=== PATIENT | female | born 1940 | race Two or more races ===

== ENCOUNTER 2018-07-21 15:38 | Emergency (ER) | payer MEDICARE, MEDICAID ==
[~2018-07-21] VITALS: Ht 142.2 cm; Wt 56.7 kg
[2018-07-21] MEDS ORDERED: ONDANSETRON 4 MG/2 ML VIAL IM ONE (16:00)
[2018-07-21] MEDS ORDERED: MORPHINE SULFATE 4 MG/1 ML DISP.SYRIN IM ONE (16:00)
[2018-07-21] MEDS ORDERED: MORPHINE SULFATE 4 MG/1 ML DISP.SYRIN ONE (16:04)
[2018-07-21] MEDS ORDERED: ONDANSETRON 4 MG/2 ML VIAL ONE (16:04)
--- NOTE | 2018-07-21 16:18 | NUR ---
PT WAS D/C'd TO HOME. D/C INSTRUCTIONS GIVEN TO THE PT.
[2018-07-21 16:19] VITALS: BP 136/82
== END 2018-07-21 16:20 | disposition home or self-care (01) ==
LOC: ER 15:39
DX: G89.29 Other chronic pain (principal); M54.42 Lumbago with sciatica, left side; E11.9 Type 2 diabetes mellitus without complications
CPT/HCPCS: 96372 ×2; 99283; J2270; J2405; A4663

== ENCOUNTER 2018-07-25 15:36 | Emergency (ER) | payer MEDICARE, MEDICAID ==
[~2018-07-25] VITALS: Ht 142.2 cm; Wt 56.7 kg
--- NOTE | 2018-07-25 15:49 | NUR ---
DR Tillman at the bedside for MSE.
[2018-07-25] MEDS ORDERED: MORPHINE SULFATE 4 MG/1 ML DISP.SYRIN ONE (16:00)
[2018-07-25] MEDS ORDERED: MORPHINE SULFATE 4 MG/1 ML DISP.SYRIN IM ONE (16:00)
[2018-07-25] MEDS ORDERED: MORPHINE SULFATE 2 MG/1 ML DISP.SYRIN ONE (16:01)
[2018-07-25 16:18] VITALS: BP 125/88
--- NOTE | 2018-07-25 16:19 | NUR ---
Patient discharged to home in stable conditon. Written and verbal after care instructions given. Patient verbalizes understanding of instructions.
== END 2018-07-25 16:19 | disposition home or self-care (01) ==
LOC: ER 15:38
DX: M54.42 Lumbago with sciatica, left side (principal); G89.29 Other chronic pain; E11.9 Type 2 diabetes mellitus without complications
CPT/HCPCS: 96372; 99283; J2270 ×2; A4663

== ENCOUNTER 2018-08-26 03:32 | Emergency (ER) | payer MEDICARE, MEDICAID ==
[~2018-08-26] VITALS: Ht 142.2 cm; Wt 56.7 kg
--- NOTE | 2018-08-26 03:50 | NUR ---
Patient ambulated with stable gait. Speech clear, speaks in complete sentences. No neuro deficits noted. A/Ox4. Patient came for c/o left lower back pain that radiates down to left lower extremity. Pain 10/. Patient stated she has been following up at pain management clinic and has been getting epidurals for pain relief but has not been effective. Respiratory even and unlabored, no cough no sob. No cardiovascular distress noted. No GI/ distress.
[2018-08-26] MEDS ORDERED: HYDROMORPHONE HCL 2 MG TABLET ONE ×2 (04:07→05:14)
[2018-08-26] MEDS ORDERED: HYDROMORPHONE HCL 2 MG TABLET PO ONE ×2 (04:15→06:00)
--- NOTE | 2018-08-26 04:15 | NUR ---
Patient transferred to CT in stable condition.
--- NOTE | 2018-08-26 04:25 | NUR ---
Patient back in room from CT
--- NOTE | 2018-08-26 04:35 | NUR ---
Patient in bed resting, NAD
--- NOTE | 2018-08-26 05:00 | NUR ---
PATIENT UNABLE TO RECALL HOMEDICATION NAMES AND DOSAGES AT THIS TIME.
[2018-08-26] MEDS ORDERED: ONDANSETRON 4 MG/2 ML VIAL IM ONE (06:45)
[2018-08-26] MEDS ORDERED: HYDROMORPHONE 1 MG/1 ML DISP.SYRIN IM ONE (06:45)
[2018-08-26] MEDS ORDERED: TARCEVA PO (06:49)
[2018-08-26] MEDS ORDERED: NOVOLOG SUBCUT (06:49)
[2018-08-26] MEDS ORDERED: HYDROMORPHONE 2 MG/1 ML DISP.SYRIN ONE (06:51)
[2018-08-26] MEDS ORDERED: ONDANSETRON 4 MG/2 ML VIAL ONE (06:51)
--- NOTE | 2018-08-26 07:33 | NUR ---
Pt states feeling better and wishes to be discharged.
[2018-08-26 07:38] VITALS: BP 134/60
--- NOTE | 2018-08-26 07:38 | NUR ---
Patient discharged to home in stable conditon. Written and verbal after care instructions given. Patient verbalizes understanding of instructions.
== END 2018-08-26 07:41 | disposition home or self-care (01) ==
LOC: ER 03:34
DX: M54.42 Lumbago with sciatica, left side (principal); E11.9 Type 2 diabetes mellitus without complications; Z79.899 Other long term (current) drug therapy; Z79.84 Long term (current) use of oral hypoglycemic drugs
CPT/HCPCS: 72131; 96372 ×2; 99284; J1170; J2405; A4663

== ENCOUNTER 2019-01-16 23:14 | Inpatient (IN) | payer MEDICARE, MEDICAID ==
[~2019-01-16] VITALS: Ht 142.2 cm; Wt 49.6 kg
[~2019-01-16 23:14] MED LIST: NOVOLOG SUBCUT; TARCEVA PO
--- NOTE | 2019-01-16 23:29 | NUR ---
Dr. Harrington at bedside for MSE.
[2019-01-16] MEDS ORDERED: ONDANSETRON ODT 4 MG TAB.RAPDIS ONE (23:35)
[2019-01-16] MEDS ORDERED: HYDROMORPHONE HCL 2 MG TABLET ONE (23:35)
[2019-01-16] MEDS ORDERED: ONDANSETRON ODT 4 MG TAB.RAPDIS SL ONE (23:45)
[2019-01-16] MEDS ORDERED: HYDROMORPHONE HCL 2 MG TABLET PO ONE (23:45)
[2019-01-17] MEDS ORDERED: HYDROMORPHONE HCL 2 MG TABLET ONE (00:04)
[2019-01-17] MEDS ORDERED: HYDROMORPHONE HCL 2 MG TABLET PO ONE (00:15)
--- NOTE | 2019-01-17 01:12 | NUR ---
Dr. Harrington on panel call with Dr. Rivera. Patient accepted for admission to [facility], diagnosis: intractable pain.
[2019-01-17] MEDS ORDERED: INSU100V37 SQ (01:15)
[2019-01-17] MEDS ORDERED: MAGNESIUM HYDROXIDE 30 ML LIQUID UDC PO PRN (01:30)
[2019-01-17] MEDS ORDERED: KETOROLAC TROMETHAMINE 15 MG INJ IVP PRN (01:30)
[2019-01-17] MEDS ORDERED: HYDROCODONE/APAP 5-325MG TABLET PO PRN (01:30)
[2019-01-17] MEDS ORDERED: ACETAMINOPHEN 325 MG TABLET PO PRN (01:30)
[2019-01-17] MEDS ORDERED: Z GUARD REMEDY PASTE 57 GM TUBE TOP PRN (01:30)
[2019-01-17] MEDS ORDERED: ONDANSETRON 4 MG/2 ML VIAL IV PRN (01:30)
[2019-01-17] MEDS ORDERED: ATOR40TA PO (01:37)
[2019-01-17] MEDS ORDERED: PREG75CA PO (01:37)
[2019-01-17] MEDS ORDERED: CALCIUM PO (01:37)
[2019-01-17] MEDS ORDERED: METF-440 PO (01:37)
[2019-01-17] MEDS ORDERED: LATA2.5D7 EACHEYE (01:37)
[2019-01-17] MEDS ORDERED: MELO-105 PO (01:37)
[2019-01-17] MEDS ORDERED: ALPR1TAB7 PO (01:37)
[2019-01-17] MEDS ORDERED: TRAM50TA2 PO (01:37)
[2019-01-17] MEDS ORDERED: [UNRECOGNIZED DRUG - OTHER] PO (01:37)
--- NOTE | 2019-01-17 01:43 | NUR ---
Report given to Jace [facility] Medsurg.
[2019-01-17 02:38] VITALS: BP 152/63
[2019-01-17] MEDS ORDERED: MORPHINE SULFATE 2 MG/1 ML DISP.SYRIN IV PRN (04:00)
[2019-01-17] MEDS ORDERED: INSULIN REGULAR, HUMAN 300 UNITS/3 ML VIAL SQ PRN (04:00)
[2019-01-17] MEDS ORDERED: DEXTROSE 50% 50 ML DISP.SYRIN IV PRN (04:00)
--- NOTE | 2019-01-17 04:27 | NUR ---
02:30 Patient arrived in unit via wheelchair with MANAGER DIVERSITY who gave report. Pt is alert and verbally oriented. Ambulatory, able to go to the bathroom. Belongings accounted for, patient signed form. Still with 10/10 pain as verbalized. Initial admission process started, full assessment done. No noted skin issues. Main issue is pain and diabetic issue. Blood sugar at ER was at 315, rechecked at this time 164. Carried out all active MD orders. All VS within normal parameters. 0315: Admission process finished. Pt continues to be in pain, Ketorolac 15 mg given via IV. Turned off all the lights, warm blanket provided and placed patient in comfortable position. 0330: Pt starts to moan more, gets restless and sitting up in bed. Complains that pain is getting worse despite medication given. report given to Dr. Rivera. 0345: Received new orders from Dr. Rivera, noted and carried out. 03:50: Followed up with pharmacy to verify orders. Will administer to patient and continue to monitor the patient. fall precautions maintained. 04:15 Morphine 2mg IV given as ordered. Will re-assess.
--- NOTE | 2019-01-17 05:10 | NUR ---
Patient verbalized that pain is now 6/10, Morphine 2 mg slightly effective, but pain is still present on L leg. Color is uniform, no discoloration noted. Dr Rivera messaged.
[2019-01-17] MEDS ORDERED: MORPHINE SULFATE 4 MG/1 ML DISP.SYRIN IV PRN (05:30)
--- NOTE | 2019-01-17 06:00 | NUR ---
Morphine 4mg ordered by Dr. Rivera. Will give and monitor results. Aside from pain, patient had no major issues. Will endorse to AM shift accordingly.
[2019-01-17] MEDS ORDERED: PANTOPRAZOLE SODIUM 40 MG TABLET.DR PO SCH (07:00)
[2019-01-17] MEDS: BLOOD SUGAR DIAGNOSTIC 1 EACH STRIP VI SCH ×2 (07:21→11:38)
[2019-01-17] MEDS: INSULIN REGULAR, HUMAN 300 UNIT/3 ML VIAL SQ PRN ×2 (07:55→11:40)
--- NOTE | 2019-01-17 08:00 | NUR ---
AWAKE ALERT AND ORIENTED X3, NO SS OF PAIN OR DISTRESS SR ON MONITOR
--- NOTE | 2019-01-17 10:00 | NUR ---
SEEN BY HOSPITALIST WITH DC ORDER. BUS CLEANER AWARE AND SPOKE WITH THE PATIENT
[2019-01-17 11:06] VITALS: BP 154/64
--- NOTE | 2019-01-17 12:31 | NUR ---
discharged home via [facility] with rx and follow-up instruction with pcp
== END 2019-01-17 13:15 | disposition home or self-care (01) | DRG 552 ==
LOC: ER 23:17 → MEDSURG3 01-17 01:45
PROVIDERS: ADMIT Student in an Organized Health Care Education/Training Program; ATTEND Nurse Practitioner Acute Care
DX: M54.42 Lumbago with sciatica, left side (principal); D68.59 Other primary thrombophilia; Z85.07 Personal history of malignant neoplasm of pancreas; Z96.653 Presence of artificial knee joint, bilateral; Z79.4 Long term (current) use of insulin; Z74.09 Other reduced mobility; E11.65 Type 2 diabetes mellitus with hyperglycemia; M48.061 Spinal stenosis, lumbar region without neurogenic claudication; I10 Essential (primary) hypertension; G89.29 Other chronic pain
CPT/HCPCS: A4663; G0378; J1815; J1885; J2270; Q0162

== ENCOUNTER 2021-11-27 13:22 | Emergency (ER) | payer MEDICARE, OTHER ==
[~2021-11-27] VITALS: Ht 147.3 cm; Wt 56.7 kg
[~2021-11-27 13:22] MED LIST changes: +ALPR1TAB7 PO; +ATOR40TA PO; +CALCIUM PO; +INSU100V37 SQ; +LATA2.5D15 EACHEYE; +MELO-105 PO; +METF-440 PO; +PREG75CA PO; -TARCEVA PO; +TRAM50TA2 PO; +[UNRECOGNIZED DRUG - OTHER] PO
--- NOTE | 2021-11-27 13:45 | NUR ---
Patient BIB [facility] for severe but chronic bilateral shoulder pain; left hip pain 10/10. Patient also complains of numbness around mouth. No other stroke like symptoms present.
[2021-11-27 14:22] LABS: MEAN CORPUSCULAR HEMOGLOBIN 31.3 uug (24.7-32.8); MEAN CORPUSCULAR VOLUME 95.9 fL (75.5-95.3); PLATELET COUNT (AUTO) 266 K/uL (179-408)
[2021-11-27] MEDS ORDERED: LOSA25TA27 PO (14:26)
[2021-11-27 14:27] LABS: CREATININE 1.3 mg/dL (0.6-1.3); POTASSIUM 4.5 mmol/L (3.5-5.1)
[2021-11-27] MEDS ORDERED: ESCI10TA PO (14:27)
[2021-11-27] MEDS ORDERED: LEVO75TA7 PO (14:28)
[2021-11-27] MEDS ORDERED: NAPR-1009 PO (14:29)
[2021-11-27] MEDS ORDERED: ESCI-9 PO (14:30)
[2021-11-27] MEDS ORDERED: LIDOCAINE 5% PATCH TD ONE ×2 (15:28→15:30)
[2021-11-27] MEDS ORDERED: TRAMADOL HCL 50 MG TABLET ONE (15:29)
[2021-11-27] MEDS ORDERED: TRAMADOL HCL 50 MG TABLET PO ONE (15:30)
[2021-11-27 16:27] LABS: *BILIRUBIN,URIN NEGATIVE (NEGATIVE); *BLOOD, URINE NEGATIVE (NEGATIVE); *CLARITY,URINE CLEAR (CLEAR); *COLOR,URINE YELLOW (YELLOW); *KETONES,URINE NEGATIVE (NEGATIVE); *UROBILINOGEN,URINE 0.2 E.U./dl (NORMAL); LEUKOCYTE ESTERASE ,URINE TRACE (NEGATIVE); NITRITE, URINE NEGATIVE (NEGATIVE); UGLUCOSE TRACE (NEGATIVE)
[2021-11-27 16:43] LABS: RBC,URINE NONE SEEN /HPF (0-3)
[2021-11-27 16:44] LABS: BACTERIA,URINE FEW /HPF (NONE SEEN); SQUAMOUS EPITHELIAL CELL,UR FEW /HPF (NONE SEEN)
[2021-11-27] MEDS ORDERED: IV NORMAL SALINE 500 ML IV ONE (17:30)
[2021-11-27] MEDS ORDERED: NAPROXEN 500 MG TABLET PO ONE (17:30)
[2021-11-27] MEDS ORDERED: NAPROXEN 500 MG TABLET ONE (17:47)
[2021-11-27] MEDS ORDERED: NITR100C11 PO (18:02)
--- NOTE | 2021-11-27 18:15 | NUR ---
Patient discharged to home in stable condition. Written and verbal after care instructions given. Patient verbalizes understanding of instructions. Stressed follow up or return to ER for worsening s/s.
[2021-11-27 18:19] VITALS: BP 113/75
== END 2021-11-27 18:20 | disposition home or self-care (01) ==
LOC: ER 13:22
DX: G89.29 Other chronic pain (principal); M25.512 Pain in left shoulder; M25.511 Pain in right shoulder; M25.532 Pain in left wrist; I10 Essential (primary) hypertension; D72.829 Elevated white blood cell count, unspecified; Z85.07 Personal history of malignant neoplasm of pancreas; Z91.040 Latex allergy status; E11.9 Type 2 diabetes mellitus without complications; Z85.028 Personal history of other malignant neoplasm of stomach; M19.90 Unspecified osteoarthritis, unspecified site; Z79.899 Other long term (current) drug therapy
CPT/HCPCS: 36415; 71045; 73030; 73110; 85025; A4663